=== PATIENT | male | born 1980 | race Caucasian/White ===

== ENCOUNTER 2018-09-23 20:15 | Emergency (ER) | payer SELFPAY ==
--- NOTE | 2018-09-23 21:29 | NUR ---
INFORMED BY ADMITTING "PT LEFT"
== END 2018-09-23 21:31 | disposition left against medical advice (07) ==
LOC: ER 20:30
DX: M25.539 Pain in unspecified wrist (principal); Z53.21 Procedure and treatment not carried out due to patient leaving prior to being seen by health care provider

== ENCOUNTER 2018-11-23 22:07 | Emergency (ER) | payer SELFPAY ==
[~2018-11-23] VITALS: Ht 165.1 cm; Wt 103.0 kg
--- NOTE | 2018-11-24 00:30 | NUR ---
Pt BIBSELF FROM HOME C/O FLU LIKE SYMPTOMS FOR PAST 4 DAYS. ALSO C/O COUGH WITH PAIN. Pt STATES HAVING SOME SOB W/COUGH. +N/V
--- NOTE | 2018-11-24 00:31 | NUR ---
Pt ALSO C/O DIZZINESS. Pt IS A/OX4, VERBAL, ABLE TO MAKE NEEDS KNOWN AND ANWER [place]. Pt IS WAITING IN BED, ALREADY SEEN BY MD. WILL CONTINUE TO MONITOR Pt AND CARRY OUT MD ORDERS.
[2018-11-24] MEDS ORDERED: HYDROCODONE/APAP 10/325MG 1 EA TABLET ONE (00:45)
[2018-11-24] MEDS ORDERED: IBUPROFEN 600 MG TABLET PO ONE ×2 (00:46→01:00)
--- NOTE | 2018-11-24 00:50 | NUR ---
Pt PENDING DISCHARGE. INFLUENZA SWAB CAME BACK NEGATIVE.
[2018-11-24] MEDS ORDERED: HYDROCODONE/APAP 10/325MG 1 EA TABLET PO ONE (01:00)
--- NOTE | 2018-11-24 01:00 | NUR ---
ALL ORDERED MEDS GIVEN
--- NOTE | 2018-11-24 01:15 | NUR ---
Patient discharged to home in stable condition. Written and verbal after care instructions given. Patient verbalizes understanding of instruction. Patient left facility on foot with steady gait. No s/s of acute distress or severe sob noted. No iv access on pt. All ordered meds given. Pt instructed not to drive. Pt's will drive back home. Vs stable.
[2018-11-24 01:20] VITALS: BP 132/90
== END 2018-11-24 01:21 | disposition home or self-care (01) ==
LOC: ER 22:11
DX: J40 Bronchitis, not specified as acute or chronic (principal)
CPT/HCPCS: 71045; 87804 ×2; 99284; A4606; 87400